=== PATIENT | female | born 1995 | race Caucasian/White ===

== ENCOUNTER 2019-08-25 13:25 | Emergency (ER) | payer OTHER, SELFPAY ==
[2019-08-25 13:31] VITALS: BP 137/87; PULSE 108; RESP 16; TEMP 36.3; O2SAT 99
--- NOTE | 2019-08-25 13:57 | ED.GENADUL_ITS ---
Discharge Plan Disposition Patient Disposition: HOME Condition: Good Discharge Details Chief Complaint: RashLesion Clinical Impression: Acute lymphangitis, Rash and nonspecific skin eruption Primary Care Provider: Patito,Local ED Provider: Tiffanie Avalos Home Meds and New Rx's Prescriptions: New sulfamethoxazole-trimethoprim [Bactrim DS] 800-160 mg tablet 1 tab PO BID Qty: 20 RF: 0 cephalexin [Keflex] 500 mg capsule 500 mg PO QID Qty: 40 RF: 0 No Action NuvaRing 1 EACH ring 1 ea VG RF: 0 Discharge Instructions Instructions: Acute Rash (ED) Additional Instructions: Cool compresses or ice packs to the area of discomfort and itching. Use Benadryl for itching. Use antibiotics as prescribed. If there is any extension or persistence of red streaking tomorrow return for reevaluation in the emergency room. If streaking is resolving continue antibiotics and follow-up with primary care doctor as discussed. Elevate arms For fever, ill feeling or worsening symptoms have immediate reevaluation in the emergency room as discussed Medical Decision Making Very pleasant 24-year-old woman presents for an itchy rash which has been present for the last 2 days. Patient reports historically every few weeks or month she notices similar rash which is itchy well-demarcated and red. Patient reports occasionally these areas will drain a clear fluid. Patient denies ill feeling. Patient questions insect bites but has seen no bugs, no obvious bedbugs as she has experienced these red wong at different homes and boyfriend has no similar. On exam patient has multiple areas of well-demarcated erythema with associated lymphangitis of the right arm. Nothing to indicate drainable abscess at this time. Patient denies IV drug use. Denies difficulty breathing or shortness of breath or wheezing. Patient is concerned primarily with st reaking. No fever, chills. Mild nausea reported with no vomiting. Eating and drink without difficulty. Denies headaches or dizziness. On exam area of erythema noted with associated lymphangitis. Skin was marked. See description and physical exam for details. Etiology possibly could be allergic versus infectious. Will recommend a course of Bactrim and Keflex with an initial dose of Rocephin in the ER for lymphangitis to cover possible infectious causes. Patient encouraged reevaluation in the emergency room in 24 hours if not improving compared to skin markings as discussed. Patient agrees with plan of care. Patient also encouraged return for any systemic symptoms. Offered testing before antibiotics and patient declines that she has no concern of and is currently on control. The patient was stable and requested discharge. Prior to discharge, my usual and customary return precautions were reviewed with the patient - this included follow-up instructions and reasons to return to the Emergency Department if conditions worsens, does not improve as expected, or other new concerns arise. HPI General Date/Time Provider Initiated Documentation: 08/25/19 13:32 . HPI Narrative: Is a very pleasant 24-year-old woman who presents for complaints of rash to her bilateral arms for the last 2 days. Patient reports began like small welts which are red and itchy. 2 areas of redness and itching noted to the right arm one on the forearm and one on the fifth digit, left arm with multiple confluent bites over the dorsal aspect of the forearm as well as one on the proximal forearm on the volar aspect. Areas are itchy and red and today patient noted area of streaking in the right arm extending toward her AC. Patient reports mild nausea but no associated fever, chills. Patient reports eating and drinking without difficulty. Patient denies pain associated. Patient reports intermittent similar welt-like rashes which occasionally have drained clear fluid which are similar however no streaking associated. Patient denies any recent tick bites. No other concerns or complaints. Boyfriend with whom she shares a bed has no similar rash. Patient has noted rash occurring in different sleeping environments when visiting family or at home. She questions insect bite however no one else has experienced a similar rash, she has seen no insect Related Data Home Medications Medication Instructions Recorded Confirmed NuvaRing 1 ea VG 07/25/17 cephalexin [Keflex] 500 mg PO QID #40 cap 08/25/19 sulfamethoxazole-trimethoprim 1 tab PO BID #20 tab 08/25/19 [Bactrim DS] Previous Rx's Medication Instructions Recorded cephalexin [Keflex] 500 mg PO QID #40 cap 08/25/19 sulfamethoxazole-trimethoprim 1 tab PO BID #20 tab 08/25/19 [Bactrim DS] Allergies Allergy/AdvReac Type Severity Reaction Status Date / Time No Known Allergies Allergy Unverified 08/25/19 13:35 General Stated Complaint: RashLesion ESA: 3 Review of Systems All systems reviewed & are unremarkable except as noted in HPI and below Constitutional Constitutional: Denies chills, Denies fatigue, Denies fever(s), Denies headache(s) and Denies malaise ENT Ears, Nose, Mouth, and Throat: Denies headache(s) Musculoskeletal Musculoskeletal: Denies numbness and Denies tingling Integumentary/Breasts Skin/Breast: Reports pruritus, Reports erythema and Reports rash Neurologic Neurologic: Denies headache(s), Denies numbness and Denies tingling Endocrine Endocrine: Denies fatigue [facility] Social History Smoking/Tobacco Use Status: Current-Occasional Tobacco Type: e-cigarettes Drug use: Never Do you feel safe in your relationship?: Yes Exam Narrative Exam Narrative: CONST: Healthy appearing patient, in no acute distress. Well hydrated. Alert and alert. NECK: Normal visual inspection. FROM. No lymphadenopathy. Trachea midline. No Midline tenderness. MUSCULOSKELETAL: Normal Gait. FROM of all extremities. Distal neurovascularly intact. Sensation intact distally. SKIN: Normal. Dry. No rashes. Patient with an area of erythema on the right forearm with a 15 cm red streak consistent with lymphangitis. Area of erythema noted to the right forearm has no significant induration or fluctuation. Well demarcated. Skin markings placed. Another area in the right fifth digit proximately approximately 1 cm which is more welt-like with again no associated limitations to range of motion fluctuation or induration. Left arm with a confluent area of multiple welts which is approximately 8 x 11 cm. Proximal forearm in the volar aspect there is an area of approximately 3 x 4 cm which is well demarcated with a central welt with no fluctuance. NEURO: Alert and awake. Speech clear. Lymph: Lymphangitis as discussed of the right forearm with no associated lymphadenopathy of the axilla bilaterally. PSYCH: Normal affect. Cooperative. Course Vital Signs Vital signs: Vital Signs Temperature 36.3 C L 08/25/19 13:31 Pulse 108 H 08/25/19 13:31 Respiratory Rate 16 08/25/19 13:31 Blood Pressure 137/87 08/25/19 13:31 Pulse Oximetry 99 08/25/19 13:31 Temperature 36.3 C L 08/25/19 13:31 Temperature Source Skin 08/25/19 13:31 Pulse 108 H 08/25/19 13:31 Respiratory Rate 16 08/25/19 13:31 Respiratory Effort Non-Labored 08/25/19 13:31 Blood Pressure 137/87 08/25/19 13:31 Blood Pressure Position Sitting 08/25/19 13:31 Pulse Oximetry 99 08/25/19 13:31 Oxygen Delivery Method Room Air 08/25/19 13:31 Oxygen Flow Rate 0 08/25/19 13:31 Pain Level 1 08/25/19 13:31
[2019-08-25] MEDS: Sulfameth/Trimeth DS TAB 1 TAB PO (14:02)
[2019-08-25] MEDS: cefTRIAXone 1 GM/50 ML BAG IVPB (14:06)
[2019-08-25 14:51] VITALS: BP 130/80; PULSE 88; RESP 18; TEMP 37; O2SAT 99
== END 2019-08-25 14:52 | disposition home or self-care (01) ==
LOC: ER 14:20
PROVIDERS: Emergency Provider Physician Assistant
DX: L03.123 Acute lymphangitis of right upper limb (principal); R21 Rash and other nonspecific skin eruption
CPT/HCPCS: 96365; 99284; 99283; J0696